=== PATIENT | female | born 1995 | race African-American/Black ===

== ENCOUNTER 2017-03-14 21:12 | Emergency (ER) | payer OTHER ==
[2017-03-14 21:17] VITALS: TEMP 98.2
--- NOTE | 2017-03-14 21:49 | EDPHY ---
H & P Stated Complaint: painful bump near vagina Source: Patient Exam Limitations: No limitations - Personal History LMP (Females 10-55): 8-14 Days Ago Current Tetanus/Diphtheria Vaccine: Unsure - Medical/Surgical History Hx Asthma: No Hx Chronic Respiratory Disease: No Hx Diabetes: No Hx Cardiac Disease: No Hx Renal Disease: No Hx Cirrhosis: No Hx Alcoholism: No Hx HIV/AIDS: No Hx Splenectomy or Spleen Trauma: No Other PMH: PMHx: seizures. PSHx: denies - Social History Smoking Status: Never smoked Time Seen by Provider: 03/14/17 21:48 HPI/ROS: HPI: This is a 22-year-old female who presents with Chief Complaint: painful bump near vagina Location: Left labia Quality: bump Duration: 3 days Signs and Symptoms: No vaginal discharge, no vaginal bleeding, no dysuria, no nausea, no vomiting Timing: Rapid onset Severity: [id number] Context: Patient complains of bump that is extremely painful and worsened with walking or sitting while at work today. Patient reports that she noticed the bump approximately 3 days ago and has increased in size. She denies any vaginal discharge/bleeding. Last menstrual period was 3 weeks ago. She has been with the same partner for 3 years. Denies any concern for STIs. Her last pelvic exam including Pap smear was approximately 10 months ago. Has never been treated for STI. Last time she shaved her pubic hair with a razor was 2 months ago. Modifying Factors: None Comment: ROS: see HPI Constitutional: No fever, no chills, no weight loss Eyes: No blurred vision Respiratory: No shortness of breath, no cough Cardiovascular: No chest pain Gastrointestinal: No nausea, no vomiting, no diarrhea Genitourinary: No dysuria Extremities: No myalgias Neurologic: No weakness, no numbness Skin: No rashes Hematologic: No bruising, no bleeding MEDICAL/SURGICAL/SOCIAL HISTORY: Medical history: Generally healthy. Does not take any regular medications. Surgical history: Denies Social history: Employed. CONSTITUTIONAL: Extremely well-appearing young black female, tidy appearance, well groomed, awake and alert, no obvious distress HEENT: Atraumatic and normocephalic, PERRL, EOMI. Tympanic membranes clear. Oropharynx clear, no exudate and moist pink mucosa. Airway patent. No lymphadenopathy. No meningismus. Cardiovascular: Normal S1/S2, regular rate, regular rhythm, without murmur rub or gallop. PULMONARY/CHEST: Symmetrical and nontender. Clear to auscultation bilaterally. Good air movement. No accessory muscle usage. ABDOMEN: Soft, nondistended, nontender, no rebound, no guarding, no peritoneal signs, no masses or organomegaly. No CVAT. PELVIC: Right external labia 4 cm fluctuant mass in the posterior portion that is extremely tender to palpation, normal cervix, cervical os was closed, no cervical motion tenderness, no adnexal mass, no discharge, no bleeding. The exam was performed with a composite engineer. EXTREMITIES: 2/2 pulses, no deformities, no clubbing, no cyanosis or edema. NEUROLOGICAL: no focal neuro deficits. GCS 15. SKIN: Warm and dry, no erythema. no rash. Good capillary refill. (Agueda Wolf) Constitutional: Initial Vital Signs Temperature (C) 36.8 C 03/14/17 21:14 Heart Rate 86 03/14/17 21:14 Respiratory Rate 14 03/14/17 21:14 Blood Pressure 123/80 H 03/14/17 21:14 O2 Sat (%) 97 03/14/17 21:14 O2 Delivery Mode Room Air Allergies/Adverse Reactions: No Known Allergies Allergy (Unverified 03/14/17 21:14) Home Medications: Medication Instructions Recorded Mirna 03/14/17 Sulfamethox/Tmp 800/160 mg 1 tab PO BID #14 tab 03/14/17 [Bactrim Ds] Medical Decision Making Procedures: Procedure: Abscess drainage. The patient's abscess was located on the right external labia. I obtained verbal consent from the patient to drain the abscess who was informed about the possibility of bleeding and pain. The abscess was incised with a scalpel and a 6 mL amount of purulent drainage was expressed. I irrigated the wound and placed some 0.5 inch iodoform packing. The patient tolerated the procedure well. The procedure was performed by myself and with a composite engineer. (Agueda Wolf) ED Course/Re-evaluation: Incision and drainage performed, wound culture sent, 0.5 inch iodoform packing placed Written and verbal wound care instructions provided Given p.o. Bactrim Advised to follow up with OBGYN with daily wound care (Agueda Wolf) Differential Diagnosis: Differential diagnosis includes [place] cyst, Bartholin's gland cyst, labial abscess. (Agueda Wolf) Other Provider: PHYSICIAN DOCUMENTATION: The patient was evaluated and managed by the Physician Irrigation System Operator. My co- signature indicates that I have reviewed this chart and I agree with the findings and plan of care as documented. I am the secondary supervising physician. (Radha Qiu) - Data Points Medications Given: Discontinued Medications Trimethoprim/Sulfamethoxazole (Bactrim Ds) 1 ea PO EDNOW ONE PRN Reason: Protocol Stop: 03/14/17 22:10 Last Admin: 03/14/17 22:17 Dose: 1 ea Departure - Departure Disposition: Home, Routine, Self-Care Clinical Impression: Abscess of right genital labia Condition: Good Instructions: Abscess (ED), Warm Compress or Soak (ED) Additional Instructions: Please keep dressing and packing in place for 48 hours. After 48 hours, you may remove the dressing; wash with mild soap and water; pat dry. Then reapply packing and change daily, until the wound is completely healed. Please take all antibiotics as directed. Follow-up with your OBGYN within 1 week. Referrals: KELVIN CAMARGO [Other] - As per Instructions Prescriptions: Sulfamethox/Tmp 800/160 mg [Bactrim Ds] 1 tab PO BID #14 tab
[2017-03-14] MEDS ORDERED: SULFAMETHOX/TMP 800/160 MG 1 TAB PO ONE (22:09)
[2017-03-14 22:32] VITALS: BP 128/74; PULSE 84; RESP 16; O2SAT 95
== END 2017-03-14 22:32 | disposition home or self-care (01) ==
PROC: 0U9M0ZZ Drainage of Vulva, Open Approach (ICD-10-PCS; principal; 2017-03-14)
DX: N76.4 Abscess of vulva (principal)